=== PATIENT | female | born 1980 | race Caucasian/White ===

== ENCOUNTER 2017-07-09 08:52 | Observation (INO) | payer OTHER ==
[2017-07-09] MEDS ORDERED: BUPIVACAINE/EPI 0.5% 30 ML SDV ONE (09:03)
[2017-07-09] MEDS ORDERED: GABAPENTIN 400 MG CAP PO ONE (09:06)
[2017-07-09] MEDS ORDERED: ACETAMINOPHEN 500 MG TAB PO ONE (09:06)
[2017-07-09] MEDS ORDERED: PHENAZOPYRIDINE HCL 200 MG TAB PO ONE (09:06)
[2017-07-09] MEDS ORDERED: CLINDAMYCIN 900 MG/DEXTROSE 50 ML IV ONE (09:06)
[2017-07-09] MEDS ORDERED: LIDOCAINE 1% 2 ML INJ ID PRN (09:08)
[2017-07-09] MEDS ORDERED: LR 1,000 ML IV ONE (09:08)
--- NOTE | 2017-07-09 10:04 | PDHPUP ---
History & Physical Update H&P update statement: This history and physical update is based on an assessment of the patient which was completed after admission or registration (within 24 hours), but prior to the surgery/procedure. H&P update: H&P reviewed & patient examined, no change in patient's condition since H&P completed
--- NOTE | 2017-07-09 10:21 | PDANEPAE ---
ANE History of Present Illness endometriosis ANE Past Medical History - Cardiovascular History Hx Hypertension: No Hx Arrhythmias: No Hx Chest Pain: No Hx Coronary Artery / Peripheral Vascular Disease: No Hx CHF / Valvular Disease: No Hx Palpitations: No - Pulmonary History Hx COPD: No Hx Asthma/Reactive Airway Disease: No Hx Recent Upper Respiratory Infection: No Hx Oxygen in Use at Home: No Hx Sleep Apnea: No Sleep Apnea Screening Result - Last Documented: Negative - Neurologic History Hx Cerebrovascular Accident: No Hx Seizures: No Hx Dementia: No - Endocrine History Hx Diabetes: No Hypothyroid: No Hyperthyroid: No Obesity: no - Renal History Hx Renal Disorders: No - Liver History Hx Hepatic Disorders: No - Neurological & Psychiatric Hx Hx Neurological and Psychiatric Disorders: Yes Neurological / Psychiatric History Comment: anxiety - Cancer History Hx Cancer: No - Congenital Disorder History Hx Congenital Disorders: No - GI History GERD: mild Hx Gastrointestinal Disorders: No - Other Health History Other Health History: none - Chronic Pain History Chronic Pain: No - Surgical History Prior Surgeries: breast reduction 2014 ANE Review of Systems Review of systems is: negative Review of Systems: - Exercise capacity METS (RN): 4 METS ANE Patient History - Allergies Allergies/Adverse Reactions: Penicillins Allergy (Intermediate, Verified 07/04/17 16:12) Hives - Home Medications Home medications: home medication list seen and reviewed Home Medications: Acetaminophen [Tylenol 325mg (*)] 325 mg PO DAILY PRN 07/09/17 [Last Taken 1 Week Ago ~07/02/17] Ascorbic Acid [Vitamin C 500 mg (*)] 500 mg PO DAILY 07/09/17 [Last Taken 2 Weeks Ago ~06/25/17] Ibuprofen [Motrin (*)] 200 mg PO DAILY PRN 07/09/17 [Last Taken 2 Weeks Ago ~] - NPO status NPO Since - Liquids (Date): 07/09/17 NPO Since - Liquids (Time): 07:00 NPO Since - Solids (Date): 07/08/17 NPO Since - Solids (Time): 21:30 - Anes Hx Anes Hx: post operative nausea and vomiting - Smoking Hx Smoking Status: Never smoked - Family Anes Hx Family Hx Anesthesia Complications: none ANE Labs/Vital Signs - Vital Signs Blood Pressure: 105/72 Heart Rate: 70 Respiratory Rate: 16 O2 Sat (%): 98 Height: 170.18 cm Weight: 74.843 kg ANE Physical Exam - Airway Neck exam: FROM Mallampati Score: Class 1 Mouth exam: normal dental/mouth exam - Pulmonary Pulmonary: no respiratory distress - Cardiovascular Cardiovascular: regular rate and rhythym - ASA Status ASA Status: I ANE Anesthesia Plan Anesthesia Plan: general endotracheal anesthesia
[2017-07-09] MEDS ORDERED: fentaNYL 250 MCG/5 ML INJ ONE (10:24)
[2017-07-09] MEDS ORDERED: PROPOFOL 200 MG/20 ML VIAL ONE (10:24)
[2017-07-09] MEDS ORDERED: ROCURONIUM 100 MG/10 ML VIAL ONE (10:26)
[2017-07-09] MEDS ORDERED: SUGAMMADEX SODIUM 200 MG/2 ML VIAL IVP ONE (10:26)
[2017-07-09] MEDS ORDERED: KETOROLAC 30 MG/1 ML SDV ONE (10:26)
[2017-07-09] MEDS ORDERED: DEXAMETHASONE 4 MG/ML VIAL ONE (10:26)
[2017-07-09] MEDS ORDERED: ONDANSETRON 4 MG/2 ML VIAL ONE (10:26)
[2017-07-09] MEDS ORDERED: LIDOCAINE 2% 5 ML SDV ONE (10:27)
[2017-07-09] MEDS ORDERED: SCOPOLAMINE HYDROBROMIDE 1 MG/3 DAYS PATCH TD SCH (10:30)
[2017-07-09] MEDS ORDERED: fentaNYL 100 MCG/2 ML INJ ONE (11:55)
[2017-07-09] MEDS ORDERED: LR 500 ML IV PRN (12:24)
[2017-07-09] MEDS ORDERED: PROMETHAZINE HCL 25 MG/ML INJ IVP PRN ×2 (12:24→13:00)
[2017-07-09] MEDS ORDERED: HYDROCODONE/APAP 5/325 TAB PO PRN (12:24)
[2017-07-09] MEDS ORDERED: fentaNYL 100 MCG/2 ML INJ IVP PRN (12:24)
[2017-07-09] MEDS ORDERED: ALBUTEROL 3 ML DEYVIAL IH PRN (12:24)
[2017-07-09] MEDS ORDERED: NALOXONE HCL 0.4 MG/ML INJ IVP PRN (12:24)
[2017-07-09] MEDS ORDERED: HYDROmorphONE/DILAUDID 1 MG/ML INJ IVP PRN ×2 (12:24→13:00)
[2017-07-09] MEDS ORDERED: ONDANSETRON 4 MG/2 ML VIAL IVP PRN ×2 (12:24→13:00)
[2017-07-09] MEDS ORDERED: ACETAMINOPHEN 500 MG TAB PO PRN (12:24)
[2017-07-09] MEDS ORDERED: OXYCODONE/APAP 5/325 TAB PO PRN ×2 (12:24→13:00)
[2017-07-09] MEDS ORDERED: epHEDrine SULFATE 10 MG/ML SYR IVP PRN (12:24)
[2017-07-09] MEDS ORDERED: METOCLOPRAMIDE 10 MG/2 ML VIAL IVP PRN (12:24)
[2017-07-09] MEDS ORDERED: PHENYLEPHRINE HCL 100 MCG/ML SYR IVP PRN (12:24)
--- NOTE | 2017-07-09 12:26 | POSTANESTH ---
Post Anesthetic Evaluation Cardiovascular Status: Normal, Stable Respiratory Status: Normal, Stable Level of Consciousness/Mental Status: Can Participate in Eval Pain Control: Adequate, Prn Tx Ordered Nausea/Vomiting Control: Adequate, Prn Tx Ordered Complications Possibly Related to Anesthesia: None Noted
[2017-07-09] MEDS ORDERED: LR 1,000 ML IV SCH (13:00)
--- NOTE | 2017-07-09 13:05 | POSTOPPROG ---
Post Op Note Date of Operation: 07/09/17 Surgeon: Guero Holder Speech Assistant: Yoli Walter Anesthesia: GET(General Endotracheal) Pre-op Diagnosis: Endometriosis, dysmenorrhea, rectocele, stress incontinence Post-op Diagnosis: same Procedure: Robotic hyst, BSO, excision of endo, bilat ureterolsys, rectocele, TOT Findings: ureters function at end of case Inf/Abcess present in the surg proc area at time of surgery?: No EBL: Minimal Complications: None Specimen(s): uterus, tubes, and ovaries, peritoneum with endo
[2017-07-09] MEDS: SIMETHICONE 80 MG TAB CHEW PO SCH ×2 (15:53→20:43)
[2017-07-09] MEDS: KETOROLAC 30 MG/1 ML SDV IVP SCH (18:11)
[2017-07-09] MEDS ORDERED: ACETAMINOPHEN 325 MG TAB PO PRN (20:00)
[2017-07-09] MEDS: DOCUSATE SODIUM 100 MG CAP PO SCH (20:43)
[2017-07-10] MEDS: SIMETHICONE 80 MG TAB CHEW PO SCH ×2 (00:21→07:43)
[2017-07-10] MEDS: KETOROLAC 30 MG/1 ML SDV IVP SCH ×2 (00:22→06:17)
[2017-07-10] MEDS: DOCUSATE SODIUM 100 MG CAP PO SCH (07:43)
[2017-07-10 09:21] VITALS: BP 97/61; PULSE 64; RESP 18; TEMP 98.4; O2SAT 95
[2017-07-10] MEDS ORDERED: PATCH REMOVAL 1 EA PATCH TD ONE (10:20)
--- NOTE | 2017-07-10 14:02 | GOP ---
[f rep st] OPERATIVE REPORT DATE OF OPERATION: 07/09/2017 SURGEON: Guero Holder MD SERVICENOW ADMINISTRATOR: ROBINSON Maciel ANESTHESIA: General. PREOPERATIVE DIAGNOSIS: 1. Dysmenorrhea. 2. Probable endometriosis. 3. Symptomatic rectocele. 4. Stress urinary incontinence. 5. Uterine prolapse. POSTOPERATIVE DIAGNOSIS: 1. Dysmenorrhea. 2. Probable endometriosis. 3. Symptomatic rectocele. 4. Stress urinary incontinence. 5. Uterine prolapse. PROCEDURE PERFORMED: 1. Robotic-assisted total laparoscopic hysterectomy and bilateral salpingo-oophorectomy. 2. Robotic excision of extensive endometriosis throughout posterior cul-de-sac and bilateral ovarian fossae. 3. Bilateral ureterolysis. 4. Uterosacral ligament colpopexy. 5. Excision of rectal lesion. 6. Rectocele repair. 7. Transobturator sling. 8. Cystoscopy. FINDINGS: SPECIMENS: Uterus, cervix, bilateral tubes and ovaries, and pelvic peritoneum with endometriosis. ESTIMATED BLOOD LOSS: Scant. DESCRIPTION OF PROCEDURE: The patient was taken to the operating room where she was identified. Gene ral anesthesia was administered and found to be adequate. She was placed in the lithotomy position an d prepared and draped in normal sterile fashion. A VCare uterine manipulator was placed into the endo metrial cavity and sutured to the cervix. A Dominguez catheter was then placed. A 1 cm infraumbilical incision was made with a scalpel. The Veress needle with the CO2 gas flowing wa s advanced into the peritoneal cavity. The abdomen was then insufflated with carbon dioxide gas. The 12 mm trocar followed by the laparoscope were then inserted. The upper abdomen was unremarkable. She had no evidence of endometriosis on the liver, stomach, or diaphragm. She did have some bowel adhesio ns to the right upper abdominal wall, possibly from endometriosis. However, no specific lesions were seen. Two lateral ports were placed on the right and one on the left under direct visualization. She then was placed in Trendelenburg position, and the da Ivory robot docked on the left side. The instru ments were then brought into the abdominal cavity under direct visualization. On examining the peritoneal cavity, it showed diffuse endometriosis throughout the posterior cul-de-s ac, the distal rectum, bilateral ovarian fossae overlying both ureters, as well as in the anterior cu l-de-sac and the uterus and ovaries. As a result, the decision was made to perform a bilateral oophor ectomy as well. The left round ligament was divided. The anterior leaf of the broad ligament was incised to the bifur cation of the left common iliac vessels. The course of the ureter was easily identified. A window was created anterior to this to skeletonize the infundibulopelvic vessels. They were then cauterized and transected. The anterior leaf of the broad ligament was then incised over the left uterine vessels a nd across the cervix. The anterior cul-de-sac peritoneum was excised to remove all endometriosis in [facility] anterior cul-de-sac. Attention was then turned to the left ovarian fossa. This required a ureterol ysis. The peritoneum had been opened at the pelvic brim. The ureter was gently dissected free from th e pelvic brim all the way down to the bladder. It was lateralized off the overlying peritoneum and en dometriosis. Once this was accomplished, the entire ovarian fossa peritoneum from the pelvic brim all the way down to the cervix and uterosacral ligaments was completely excised. The left uterine artery was then coagulated and transected just above and lateral to the left ureter, crossing underneath it . The exact same procedure was then performed on the patient's right side, also requiring a right ure terolysis. The entire posterior cul-de-sac peritoneum was then completely excised. There were several lesions on the distal rectum, which were removed together. This extended approximately 50% through merged [facility] muscularis of the rectum. It was left attached to the peritoneum, to be removed en bloc. A circumf erential colpotomy incision was then made with the hot thaddeus, and all specimens were removed through the vagina. The vaginal cuff was then closed with a running suture of 0 V-Loc 180. The uterosacral ligament colpopexy was performed by attaching the lateral aspects of the vaginal cuf f to the ipsilateral uterosacral ligaments near their insertion into the coccygeus sacrospinous ligam ent complexes. This was accomplished without suture. The pelvis was then copiously irrigated with kt rile saline, and hemostasis was present. The robot was then undocked. The fascia was closed with 0 Vi cryl, skin with 4-0 Monocryl and surgical adhesive. A mid urethral incision was made with a scalpel. Tunnels were created bilaterally out toward the obtu rator internus muscles. Skin incisions were made over the obturator notches. The trocar w as placed through the left skin incision and redirected around the ischial pubic rami and out through the vaginal incision using a vaginal finger as a guide. The lateral sulci were examined and no evide nce of vaginal injury had occurred. The sling was then attached and brought out along the same course . The exact same procedure was performed on the patient's right side. The sling was then adjusted to allow a small mid urethral gap. The vaginal epithelium was closed with 2-0 Vicryl, the skin with 4-0 Monocryl. Cystoscopy was then performed. Both ureters had vigorous jets of urine. There was no evidence of blad abhi nor urethral injury. There was no suture nor mesh within the bladder or urethra. No obvious patho logy was seen. The Dominguez catheter was then replaced. A transverse incision was then made along the perineal body. The posterior vaginal epithelium was und ermined with the Metzenbaum scissors and incised sagittally. The epithelium was then gently dissected off the underlying rectovaginal connective tissue. The connective tissue was then plicated with inte rrupted sutures of 0 Vicryl. The bulbospongiosus and transverse perineal muscles were also plicated i n the midline. The excess epithelium was then trimmed and closed with a running 2-0 Vicryl suture. Va ginal packing was then placed, anesthesia was reversed, and the patient taken to PACU awake, in stabl e condition. COMPLICATIONS: None. DISPOSITION: Patient stable to PACU. /[id number]/MODL
--- NOTE | 2017-07-11 15:16 | GDS ---
[f rep st] DISCHARGE SUMMARY DISCHARGE DIAGNOSES: 1. Dysmenorrhea. 2. Endometriosis. 3. Rectocele. 4. Stress urinary incontinence. PROCEDURES: 1. Robotic-assisted total laparoscopic hysterectomy, bilateral salpingo-oophorectomy. 2. Robotic excision of endometriosis. 3. Rectocele repair. 4. Bilateral ureterolysis. 5. Transobturator sling. 6. Uterosacral ligament colpopexy. HISTORY: The patient is a 36-year-old female with painful menses secondary to endometriosis, a sympt omatic rectocele and stress incontinence. She was taken to the operating room on 07/09/2017, where s he underwent the above-mentioned procedures without complications. Her postoperative course was unev entful. The morning after surgery, she was ambulating, voiding, and tolerating a general diet. She was discharged home on postoperative day #1 in good condition. Medications included Percocet and ibuprofen for pain. She is to follow up in the office 2 weeks after discharge. /[id number]/MODL
== END 2017-07-10 10:51 | disposition home or self-care (01) ==
LOC: FSGY 08:52 → F3E 13:00 → FOB 14:07
PROVIDERS: ADMIT Obstetrics & Gynecology; ATTEND Obstetrics & Gynecology
PROC: 0UT2FZZ Resection of Bilateral Ovaries, Via Natural or Artificial Opening With Percutaneous Endoscopic Assistance (ICD-10-PCS; principal; 2017-07-09 10:15)
PROC: 0UT9FZZ Resection of Uterus, Via Natural or Artificial Opening With Percutaneous Endoscopic Assistance (ICD-10-PCS; principal; 2017-07-09 10:15)
PROC: 0UBF4ZZ Excision of Cul-de-sac, Percutaneous Endoscopic Approach (ICD-10-PCS; principal; 2017-07-09 10:15)
PROC: 0UTC8ZZ Resection of Cervix, Via Natural or Artificial Opening Endoscopic (ICD-10-PCS; principal; 2017-07-09 10:15)
PROC: 0DQP0ZZ Repair Rectum, Open Approach (ICD-10-PCS; principal; 2017-07-09 10:15)
PROC: 0UT7FZZ Resection of Bilateral Fallopian Tubes, Via Natural or Artificial Opening With Percutaneous Endoscopic Assistance (ICD-10-PCS; principal; 2017-07-09 10:15)
PROC: 0TUC0JZ Supplement Bladder Neck with Synthetic Substitute, Open Approach (ICD-10-PCS; principal; 2017-07-09 10:15)
PROC: 0UUG4JZ Supplement Vagina with Synthetic Substitute, Percutaneous Endoscopic Approach (ICD-10-PCS; principal; 2017-07-09 10:15)
PROC: 8E0W8CZ Robotic Assisted Procedure of Trunk Region, Via Natural or Artificial Opening Endoscopic (ICD-10-PCS; principal; 2017-07-09 10:15)
DX: N80.3 Endometriosis of pelvic peritoneum (principal); N80.0 Endometriosis of uterus; N80.5 Endometriosis of intestine; N80.1 Endometriosis of ovary; N92.0 Excessive and frequent menstruation with regular cycle; N94.6 Dysmenorrhea, unspecified; N39.3 Stress incontinence (female) (male); N81.6 Rectocele; N94.10 Unspecified dyspareunia; K44.9 Diaphragmatic hernia without obstruction or gangrene; N81.4 Uterovaginal prolapse, unspecified; Z88.0 Allergy status to penicillin
CPT/HCPCS: 57250; 57288; 57425; 58571; 58662; G0378; C1771; J1100; J1885; J1956; J2405; J2704; J3010